=== PATIENT | female | born 1980 | race African-American/Black ===

== ENCOUNTER 2018-08-26 04:27 | Inpatient (IN) | payer OTHER ==
[2018-08-26] MEDS ORDERED: MAGNESIUM SULFATE 4 GM/100 ML 100 ML (05:00)
[2018-08-26] MEDS: LACTATED RINGER'S 1,000 ML IV ×2 (05:17→12:21)
[2018-08-26] MEDS: MAGNESIUM SULFATE 4 GM/100 ML 100 ML IV (05:18)
[2018-08-26] MEDS: BETAMET NA PHOS/AC(6 MG/ML) 2 ML INJ SYG IM (05:19)
[2018-08-26 05:25] LABS: ADD MAN DIFF? NO
[2018-08-26 05:30] LABS: WHITE BLOOD COUNT 6.7 10^3/ul (4.8-10.8)
[2018-08-26 05:30] LABS: BASOPHILS % 0.4 % (0.0-2.0); EOSINOPHILS # 0.1 10^3/ul (0.0-0.5); EOSINOPHILS % 1.6 % (0.0-7.0); HEMATOCRIT 34.7 % (37.0-47.0); HEMOGLOBIN 11.1 g/dl (12.0-16.0); LYMPHOCYTES # 1.2 10^3/ul (0.8-2.9); MEAN CORPUSCULAR HEMOGLOBIN 28.4 pg (29.0-33.0); MEAN CORPUSCULAR VOLUME 88.7 fl (82.0-101.0); MEAN PLATELET VOLUME 10.6 fl (7.4-10.4); MONOCYTE # 0.7 10^3/ul (0.3-0.9); MONOCYTES % 10.8 % (0.0-11.0); NEUTROPHIL # 4.6 10^3/ul (1.6-7.5); NEUTROPHILS % 68.8 % (39.0-77.0); PLATELET COUNT 158 10^3/UL (140-415); RED BLOOD COUNT 3.91 10^6/ul (4.20-5.40); RED CELL DISTRIBUTION WIDTH 14.4 % (11.5-14.5)
[2018-08-26] MEDS: MAGNESIUM SULFATE 20 GM/500 ML 500 ML IV ×3 (05:44→23:26)
[2018-08-26 05:47] LABS: INR 0.94; PARTIAL THROMBOPLASTIN TIME 26.9 Sec (23.0-35.0); PROTIME 12.7 Sec (11.9-14.9)
[2018-08-26 05:51] LABS: URIC ACID 4.6 mg/dl (3.1-7.9)
[2018-08-26 05:53] LABS: ALANINE AMINOTRANSFERASE 12 IU/L (13-69); ALBUMIN 3.2 g/dl (3.3-4.9); ALBUMIN/GLOBULIN RATIO 1.14; ALKALINE PHOSPHATASE 95 IU/L (42-121); ANION GAP 4 (5-13); ASPARTATE AMINO TRANSFERASE 20 IU/L (15-46); BILIRUBIN,INDIRECT 0.5 mg/dl (0-1.1); BILIRUBIN,TOTAL 0.5 mg/dl (0.2-1.3); CARBON DIOXIDE 27 mmol/L (21-31); CHLORIDE 108 mmol/L (97-110); CREATININE 0.46 mg/dl (0.44-1.00); Estimated GFR > 60 mL/min (>60); GLUCOSE 99 mg/dl (70-220); POTASSIUM 3.6 mmol/L (3.5-5.1); SODIUM 139 mmol/L (135-144)
[2018-08-26 05:57] LABS: BLOOD UREA NITROGEN < 2 mg/dl (7-20)
[2018-08-26 10:55] LABS: ADD UMIC YES; UR ASCORBIC ACID NEGATIVE (NEGATIVE); UR BACTERIA FEW /HPF (NONE SEEN); UR BILIRUBIN (Dip) NEGATIVE (NEGATIVE); UR BLOOD (Dip) 3+ mg/dL (NEGATIVE); UR CLARITY SLIGHTLY CLOUDY (CLEAR); UR COLOR YELLOW (YELLOW); UR GLUCOSE (Dip) NEGATIVE (NEGATIVE); UR KETONES (Dip) 1+ mg/dL (NEGATIVE); UR LEUKOCYTE ESTERASE (Dip) NEGATIVE Leu/ul (NEGATIVE); UR MUCUS FEW /HPF (NONE SEEN); UR NITRITE (Dip) NEGATIVE (NEGATIVE); UR RBC 0 /HPF (0-5); UR SPECIFIC GRAVITY (Dip) 1.008 (1.003-1.030); UR SQUAMOUS EPITHELIAL CELL FEW /HPF (FEW); UR TOTAL PROTEIN (Dip) NEGATIVE (NEGATIVE); UR UROBILINOGEN (Dip) NEGATIVE (NEGATIVE); UR WBC 2 /HPF (0-5)
[2018-08-26 11:17] LABS: AMPHETAMINE/METHAMPHETAMINE Negative (NEGATIVE); BARBITURATES Negative (NEGATIVE); BENZODIAZEPINES Negative (NEGATIVE); CANNABINOIDS Negative (NEGATIVE); COCAINE Negative (NEGATIVE); OPIATES Negative (NEGATIVE)
[2018-08-26 13:12] LABS: MAGNESIUM 5.2 mg/dl (1.7-2.5)
[2018-08-26 19:39] LABS: MAGNESIUM 5.8 mg/dl (1.7-2.5)
[2018-08-26] MEDS: DIPHENHYDRAMINE 25 MG CAP PO (23:20)
[2018-08-27] MEDS ORDERED: ACETAMINOPHEN 325 MG TAB (00:55)
[2018-08-27] MEDS ORDERED: AL HYDROX/MG HYDROX/SIMETH 30 ML CUP PO (01:00)
[2018-08-27 01:27] LABS: MAGNESIUM 6.1 mg/dl (1.7-2.5)
[2018-08-27] MEDS: LACTATED RINGER'S 1,000 ML IV ×2 (04:39→19:25)
[2018-08-27] MEDS: BETAMET NA PHOS/AC(6 MG/ML) 2 ML INJ SYG IM (06:05)
[2018-08-27 07:37] LABS: MAGNESIUM 6.2 mg/dl (1.7-2.5)
[2018-08-27] MEDS: MAGNESIUM SULFATE 20 GM/500 ML 500 ML IV ×2 (10:09→22:47)
[2018-08-27 18:54] LABS: MAGNESIUM 4.9 mg/dl (1.7-2.5)
[2018-08-27] MEDS: DIPHENHYDRAMINE 25 MG CAP PO (22:48)
[2018-08-28] MEDS: LACTATED RINGER'S 1,000 ML IV ×3 (01:30→22:42)
[2018-08-28 02:18] LABS: MAGNESIUM 5.7 mg/dl (1.7-2.5)
[2018-08-28 06:38] LABS: MAGNESIUM 5.8 mg/dl (1.7-2.5)
[2018-08-28] MEDS: MAGNESIUM SULFATE 20 GM/500 ML 500 ML IV ×2 (08:42→18:11)
[2018-08-28 12:52] LABS: MAGNESIUM 5.5 mg/dl (1.7-2.5)
[2018-08-28] MEDS: DIPHENHYDRAMINE 25 MG CAP PO (21:08)
[2018-08-28 21:51] LABS: MAGNESIUM 5.3 mg/dl (1.7-2.5)
[2018-08-29 00:45] LABS: MAGNESIUM 5.4 mg/dl (1.7-2.5)
[2018-08-29] MEDS: MAGNESIUM SULFATE 20 GM/500 ML 500 ML IV (04:39)
[2018-08-29 06:55] LABS: MAGNESIUM 5.3 mg/dl (1.7-2.5)
[2018-08-29] MEDS ORDERED: PRENATAL VITAMIN PO (09:00)
[2018-08-29] MEDS: DIPHENHYDRAMINE 25 MG CAP PO (20:56)
[2018-08-29] MEDS: ACETAMINOPHEN 325 MG TAB PO (20:57)
[2018-08-29] MEDS: DOCUSATE SODIUM 100 MG CAP PO (22:14)
[2018-08-30 06:38] LABS: ADD MAN DIFF? NO
[2018-08-30 06:46] LABS: BASOPHILS % 0.5 % (0.0-2.0); EOSINOPHILS # 0.2 10^3/ul (0.0-0.5); HEMATOCRIT 32.9 % (37.0-47.0); HEMOGLOBIN 10.4 g/dl (12.0-16.0); LYMPHOCYTES # 1.6 10^3/ul (0.8-2.9); LYMPHOCYTES % 19.1 % (15.0-51.0); MEAN CORPUSCULAR HEMOGLOBIN 28.6 pg (29.0-33.0); MEAN CORPUSCULAR HGB CONC 31.6 g/dl (32.0-37.0); MEAN CORPUSCULAR VOLUME 90.4 fl (82.0-101.0); MEAN PLATELET VOLUME 10.6 fl (7.4-10.4); MONOCYTE # 1.1 10^3/ul (0.3-0.9); MONOCYTES % 12.4 % (0.0-11.0); NEUTROPHIL # 5.4 10^3/ul (1.6-7.5); NEUTROPHILS % 64.1 % (39.0-77.0); NUCLEATED RED BLOOD CELLS% 0.2 /100WBC (0.0-0.0); PLATELET COUNT 161 10^3/UL (140-415); RED BLOOD COUNT 3.64 10^6/ul (4.20-5.40); RED CELL DISTRIBUTION WIDTH 14.4 % (11.5-14.5)
[2018-08-30 06:46] LABS: WHITE BLOOD COUNT 8.4 10^3/ul (4.8-10.8)
[2018-08-30 07:00] LABS: INR 0.87; PROTIME 11.9 Sec (11.9-14.9); PT RATIO 0.9
[2018-08-30] MEDS ORDERED: CEFAZOLIN 2 GM/50 ML (PMX) 50 ML IVPB (07:00)
[2018-08-30] MEDS ORDERED: CARBOPROST 250 MCG INJ IM ×2 (07:00→15:00)
[2018-08-30] MEDS ORDERED: METHYLERGONOVINE 0.2 MG INJ IM ×2 (07:00→15:00)
[2018-08-30] MEDS ORDERED: OXYTOCIN 30 UNITS/LR 500 ML IV ×2 (07:00→15:00)
[2018-08-30] MEDS ORDERED: MISOPROSTOL 200 MCG TAB PR ×2 (07:00→15:00)
[2018-08-30 07:01] LABS: PARTIAL THROMBOPLASTIN TIME 22.6 Sec (23.0-35.0)
[2018-08-30] MEDS: LACTATED RINGER'S 1,000 ML IV ×2 (07:03→14:45)
[2018-08-30] MEDS ORDERED: morphine SULFATE/PF (10 MG/10 ML) INJ (08:04)
[2018-08-30] MEDS ORDERED: OXYTOCIN 10 UNIT INJ (08:04)
[2018-08-30] MEDS ORDERED: ONDANSETRON 4 MG INJ (08:04)
[2018-08-30] MEDS ORDERED: MIDAZOLAM 1 MG/ML 2 ML INJ (08:31)
[2018-08-30] MEDS ORDERED: FENTAnyl 50 MCG/ML VIAL (08:37)
[2018-08-30] MEDS: KETOROLAC 30 MG INJ IV ×3 (09:27→23:39)
[2018-08-30] MEDS ORDERED: NALOXONE (0.4 MG/ML) INJ IV (09:30)
[2018-08-30] MEDS ORDERED: ONDANSETRON 4 MG INJ IV (09:30)
[2018-08-30 09:33] LABS: HEPATITIS B SURFACE ANTIGEN NEGATIVE (NEGATIVE)
[2018-08-30] MEDS: OXYTOCIN 30 UNITS/LR 500 ML IV ×3 (09:34→18:21)
[2018-08-30] MEDS: DIPHENHYDRAMINE 50 MG INJ IV ×2 (10:51→23:06)
[2018-08-30] MEDS: morphine 2 MG INJ IV (11:02)
[2018-08-30] MEDS ORDERED: LANOLIN HPA 1 PKT TOP (15:00)
[2018-08-30] MEDS ORDERED: NACL 0.9% 3 ML SYG IV (15:00)
[2018-08-30] MEDS ORDERED: NA PHOSPHATE/BIPHOS 133 ML ENEMA PR (15:00)
[2018-08-30 15:45] LABS: RAPID PLASMA REAGIN NONREACTIVE (NR)
[2018-08-31] MEDS: LACTATED RINGER'S 1,000 ML IV ×2 (03:23→11:30)
[2018-08-31] MEDS: HYDROCODONE/APAP (5/325) TAB PO ×3 (08:21→17:59)
[2018-08-31 08:43] LABS: ADD MAN DIFF? NO
[2018-08-31 08:46] LABS: WHITE BLOOD COUNT 11.1 10^3/ul (4.8-10.8)
[2018-08-31 08:46] LABS: BASOPHILS % 0.3 % (0.0-2.0); EOSINOPHILS # 0.2 10^3/ul (0.0-0.5); EOSINOPHILS % 1.5 % (0.0-7.0); HEMATOCRIT 27.8 % (37.0-47.0); HEMOGLOBIN 8.9 g/dl (12.0-16.0); LYMPHOCYTES # 1.3 10^3/ul (0.8-2.9); LYMPHOCYTES % 11.6 % (15.0-51.0); MEAN CORPUSCULAR HEMOGLOBIN 28.8 pg (29.0-33.0); MEAN PLATELET VOLUME 11.1 fl (7.4-10.4); MONOCYTES % 9.1 % (0.0-11.0); NEUTROPHIL # 8.5 10^3/ul (1.6-7.5); NEUTROPHILS % 76.5 % (39.0-77.0); PLATELET COUNT 166 10^3/UL (140-415); RED BLOOD COUNT 3.09 10^6/ul (4.20-5.40); RED CELL DISTRIBUTION WIDTH 14.1 % (11.5-14.5)
[2018-08-31] MEDS: IBUPROFEN 800 MG TAB PO ×2 (14:11→21:56)
[2018-08-31] MEDS: DIPHENHYDRAMINE 50 MG CAP PO (21:01)
[2018-08-31] MEDS: NALBUPHINE HCL (10 MG/1 ML) INJ IV (21:30)
[2018-09-01] MEDS: HYDROCODONE/APAP (5/325) TAB PO ×2 (03:36→13:08)
[2018-09-01] MEDS: IBUPROFEN 800 MG TAB PO ×3 (06:28→22:09)
[2018-09-01] MEDS: DIPHENHYDRAMINE 50 MG CAP PO (19:17)
[2018-09-02] MEDS: IBUPROFEN 800 MG TAB PO ×2 (06:29→14:00)
[2018-09-02] MEDS: MEASLES,MUMPS,RUBELLA VACCINE INJ SC* (09:00)
[2018-09-02] MEDS: BISACODYL 10 MG SUPP PR (09:30)
[2018-09-02] MEDS: DIPHTH/TET/ACEL PERTUSS (ADULT) 0.5 ML VIAL IM* (13:01)
[2018-09-02] MEDS: HYDROCODONE/APAP (5/325) TAB PO (13:10)
== END 2018-09-02 16:29 | disposition home or self-care (01) | DRG 783 ==
LOC: OBT 04:27 → L-D 04:27 → OBT 04:37 → L-D 08-30 09:12 → PP1 08-30 14:26 → L-D 07:26
PROVIDERS: Obstetrics & Gynecology
PROC: 10D00Z1 Extraction of Products of Conception, Low, Open Approach (ICD-10-PCS; principal; 2018-08-30)
PROC: 0UL70ZZ Occlusion of Bilateral Fallopian Tubes, Open Approach (ICD-10-PCS; 2018-08-30)
DX: O65.5 Obstructed labor due to abnormality of maternal pelvic organs (principal); O60.13X0 Preterm labor second trimester with preterm delivery third trimester, not applicable or unspecified; O34.211 Maternal care for low transverse scar from previous cesarean delivery; Z3A.34 34 weeks gestation of pregnancy; O32.1XX0 Maternal care for breech presentation, not applicable or unspecified; Z37.0 Single live birth; Z30.2 Encounter for sterilization
CPT/HCPCS: 36415; 76815; 76818; 80053; 80307; 81001; 83735; 84560; 85025; 85384; 85610; 85730; 86592; 86850; 86900; 86901; 86920; 87086; 87340; 88302; 88307; 90715; 99464